=== PATIENT | female | born 1970 | race African-American/Black ===

== ENCOUNTER 2017-01-19 20:58 | Emergency (ER) | payer MEDICAID, MEDICARE ==
[~2017-01-19] VITALS: Ht 172.7 cm; Wt 77.0 kg
[~2017-01-19 20:58] MED LIST: ALPR1TAB2 PO; DIPH25CA83 PO; HYDR25TA PO; MECL-109 PO; PRED5TAB48 PO
[2017-01-19] MEDS ORDERED: METHYLPREDNISOLONE SOD SUCC 125 MG/2 ML VIAL IV STA (21:36)
[2017-01-19] MEDS ORDERED: IPRATROPIUM BROMIDE (0.02%) 0.5MG/2.5ML NEB HHN STA (21:36)
[2017-01-19] MEDS ORDERED: ALBUTEROL (0.083%) 2.5MG/3ML NEB HHN STA (21:36)
[2017-01-19] MEDS ORDERED: ACETAMINOPHEN 325MG TABLET PO ONE (21:45)
[2017-01-19] MEDS ORDERED: MORPHINE SULFATE 4 MG/ML CPJ (NOT FOR IM USE) IV ONE (22:30)
[2017-01-19 23:49] VITALS: BP 142/82
[2017-06-13] MEDS ORDERED: TIOT18CA3 IH (13:18)
[2017-06-13] MEDS ORDERED: ATROV INH (13:18)
[2017-06-13] MEDS ORDERED: albuterol (13:18)
[2017-06-13] MEDS ORDERED: MOME13HF INH (13:18)
== END 2017-01-19 23:54 | disposition home or self-care (01) ==
LOC: ER 21:00
DX: J20.9 Acute bronchitis, unspecified (principal); G43.909 Migraine, unspecified, not intractable, without status migrainosus; F41.9 Anxiety disorder, unspecified; I10 Essential (primary) hypertension; J45.909 Unspecified asthma, uncomplicated; Z98.890 Other specified postprocedural states; Z88.6 Allergy status to analgesic agent
CPT/HCPCS: 71010; 94640; 96374; 96375; 99284; J2270; J2930; J7611; Z7610

== ENCOUNTER 2017-05-17 12:07 | Emergency (ER) | payer MEDICARE ==
[~2017-05-17] VITALS: Ht 170.2 cm; Wt 86.0 kg
[2017-05-17] MEDS ORDERED: IPRATROPIUM BROMIDE (0.02%) 0.5MG/2.5ML NEB HHN STA (13:00)
[2017-05-17] MEDS ORDERED: ALBUTEROL (0.083%) 2.5MG/3ML NEB HHN STA (13:00)
[2017-05-17] MEDS ORDERED: METHYLPREDNISOLONE SOD SUCC 125 MG/2 ML VIAL IV STA (13:00)
[2017-05-17] MEDS ORDERED: ACETAMINOPHEN WITH CODEINE 300/30MG TABLET PO ONE (13:15)
[2017-05-17] MEDS ORDERED: SODIUM CHLORIDE 0.9% 1,000 ML IV ONE (13:15)
[2017-05-17] MEDS ORDERED: METHYLPREDNISOLONE SOD SUCC 125 MG/2 ML VIAL IV ONE (13:15)
[2017-05-17 13:34] LABS: BASOPHILS % 0.7 % (0.0-2.0); EOSINOPHILS % 2.1 % (0.0-5.0); HEMATOCRIT. 34.8 % (36.0-48.0); HEMOGLOBIN. 11.4 g/dL (12.0-16.0); MEAN CORPUSCULAR HEMOGLOBIN 27.3 pg (28.0-32.0); MEAN CORPUSCULAR VOLUME 83.1 fL (81.0-99.0); MEAN PLATELET VOLUME 8.7 fl (7.4-10.4); MONOCYTES % 8.2 % (2.0-8.0); PLATELET 404 x1000/uL (130-400); RED BLOOD CELL COUNT 4.18 mill/uL (4.2-5.4); RED CELL DISTRIBUTION WIDTH 15.6 % (11.6-14.6)
[2017-05-17 13:39] LABS: INR 1.1; PROTHROMBIN TIME 10.9 sec (9.4-11.6)
[2017-05-17 13:47] LABS: CARBON DIOXIDE 25 mEq/L (21-32); CHLORIDE 105 mEq/L (98-107)
[2017-05-17] MEDS ORDERED: MORPHINE SULFATE 10 MG/ML CPJ IM ONE (14:30)
[2017-05-17 17:03] VITALS: BP 121/70
== END 2017-05-17 17:12 | disposition home or self-care (01) ==
LOC: ER 12:42
DX: J45.901 Unspecified asthma with (acute) exacerbation (principal); M54.12 Radiculopathy, cervical region; I10 Essential (primary) hypertension; F41.9 Anxiety disorder, unspecified; G43.909 Migraine, unspecified, not intractable, without status migrainosus; Z88.6 Allergy status to analgesic agent
CPT/HCPCS: 36415; 71020; 80053; 81025; 83690; 85025; 85610; 93005; 94640; 96361; 96372; 96374; 99285; J2270; J2930; J7030; J7611; Z7610; A4565

== ENCOUNTER 2017-06-06 10:47 | Emergency (ER) | payer MEDICARE ==
[~2017-06-06] VITALS: Ht 172.7 cm; Wt 82.0 kg
[2017-06-06 12:12] LABS: CLARITY URINE CLEAR (CLEAR); COLOR URINE YELLOW (YELLOW); GLUCOSE URINE NEGATIVE (NEGATIVE); KETONES URINE NEGATIVE (NEGATIVE); LEUKOCYTE ESTERASE URINE NEGATIVE (NEGATIVE); NITRITE URINE NEGATIVE (NEGATIVE); OCCULT BLOOD URINE NEGATIVE (NEGATIVE); PROTEIN URINE NEGATIVE (NEGATIVE); SPECIFIC GRAVITY URINE 1.025 (1.005-1.030); UROBILINOGEN URINE 0.2 E.U./dL (0.2-1.0)
[2017-06-06] MEDS ORDERED: SODIUM CHLORIDE 0.9% 1,000 ML IV ONE (12:22)
[2017-06-06] MEDS ORDERED: MORPHINE SULFATE 4 MG/ML CPJ (NOT FOR IM USE) IV STA (12:22)
[2017-06-06] MEDS ORDERED: ONDANSETRON HCL 4MG/2ML VIAL IV STA (12:22)
[2017-06-06] MEDS ORDERED: MORPHINE SULFATE 10 MG/ML CPJ IV ONE (12:45)
[2017-06-06 12:47] LABS: BASOPHILS % 0.4 % (0.0-2.0); HEMATOCRIT. 31.1 % (36.0-48.0); HEMOGLOBIN. 9.9 g/dL (12.0-16.0); LYMPHOCYTES % 29.3 % (20.0-50.0); MEAN CORPUSCULAR HEMOGLOBIN 26.5 pg (28.0-32.0); MEAN CORPUSCULAR VOLUME 83.3 fL (81.0-99.0); MEAN PLATELET VOLUME 7.9 fl (7.4-10.4); MONOCYTES % 7.5 % (2.0-8.0); NEUTROPHILS % 61.8 % (40.0-76.0); PLATELET 231 x1000/uL (130-400); RED BLOOD CELL COUNT 3.74 mill/uL (4.2-5.4); RED CELL DISTRIBUTION WIDTH 16.2 % (11.6-14.6)
[2017-06-06 13:04] LABS: CARBON DIOXIDE 33 mEq/L (21-32); CHLORIDE 104 mEq/L (98-107); TROPONIN I < 0.02 ng/mL (0.00-0.04)
[2017-06-06] MEDS ORDERED: LEVOFLOXACIN 500MG TABLET PO ONE (15:00)
[2017-06-06 15:43] VITALS: BP 140/84
== END 2017-06-06 15:44 | disposition home or self-care (01) ==
LOC: ER 10:47
DX: R20.2 Paresthesia of skin (principal); J18.9 Pneumonia, unspecified organism; R10.11 Right upper quadrant pain; M54.5 Low back pain; G89.29 Other chronic pain; R20.0 Anesthesia of skin; R11.2 Nausea with vomiting, unspecified; M79.602 Pain in left arm; M79.601 Pain in right arm; F41.9 Anxiety disorder, unspecified; J45.909 Unspecified asthma, uncomplicated; I10 Essential (primary) hypertension; Z88.6 Allergy status to analgesic agent; Z98.890 Other specified postprocedural states
CPT/HCPCS: 36415; 71010; 76705; 80053; 81003; 83690; 84484; 85025; 93005; 96361; 96374; 96375; 99285; J2270; J2405; J7030; Z7610